=== PATIENT | female | born 1975 ===

== ENCOUNTER 2021-05-24 08:00 | Outpatient (CLI) | payer OTHER | END 2021-05-24 08:30 | disposition home or self-care (01) | LOC: PPH VACUNA 08:00 | DX: Z23 Encounter for immunization (principal) ==

== ENCOUNTER 2021-06-14 08:00 | Outpatient (CLI) | payer OTHER | END 2021-06-14 08:30 | disposition home or self-care (01) | LOC: PPH VACUNA 08:00 | DX: Z23 Encounter for immunization (principal) ==

== ENCOUNTER 2021-08-05 08:04 | Outpatient (CLI) | payer OTHER | END 2021-08-14 15:48 | disposition home or self-care (01) | LOC: MAMO-SONO 08:04 → EDBD 08:04 → MAMO-SONO 08-14 15:48 | PROVIDERS: ATTEND Obstetrics & Gynecology | DX: N60.11 Diffuse cystic mastopathy of right breast (principal); Z12.31 Encounter for screening mammogram for malignant neoplasm of breast ==

== ENCOUNTER → 2021-08-05 08:29 | Outpatient (CLI) | payer OTHER | END | disposition home or self-care (01) | LOC: EDBD 08:29 → LAB 08:29 | PROVIDERS: ATTEND Obstetrics & Gynecology | DX: I10 Essential (primary) hypertension (principal); E78.2 Mixed hyperlipidemia ==

== ENCOUNTER 2021-08-13 14:30 | Outpatient (CLI) | payer OTHER | END 2021-08-13 15:00 | disposition home or self-care (01) | LOC: LAB 14:30 | PROVIDERS: ATTEND Obstetrics & Gynecology | DX: N92.5 Other specified irregular menstruation (principal) ==

== ENCOUNTER 2025-03-14 06:38 | Outpatient (CLI) | payer OTHER ==
[2025-03-14 07:16] LABS: BASO % 1.1 % (0.1-1.2); EOS # 0.22 (0.04-0.54); HEMATOCRIT 39.7 % (34.1-44.9); HEMOGLOBIN 13.9 g/dL (11.2-15.7); LYMPH # 1.79 (1.18-3.74); LYMPH % 32.7 % (19.3-53.1); MEAN CORPUSCULAR HEMOGLOBIN 33.1 pg (25.6-32.2); MONO % 7.3 % (4.7-12.5); NEUT % 54.7 % (34.0-71.1); PLATELET COUNT 271 K/uL (163-369)
[2025-03-14 08:45] LABS: ALBUMIN 3.9 gm/dL (3.4-5.0); BILIRUBIN TOTAL 0.66 mg/dL (0.3-1.2); CALCIUM 8.6 mg/dL (8.5-10.1); CHOL HDL RATIO 3.6 (0-5.0); CREATININE SERUM 0.76 mg/dL (0.55-1.02); GFR 80.88; GLOBULINA 3.2 G/DL (2.4-3.5); T4 FREE 0.98 NG/ML (0.76-1.46); TOTAL PROTEIN 7.1 gm/dL (6.4-8.2); TSH 2.31 uIU/mL (0.358-3.74)
[2025-03-14 09:47] LABS: URINE APPEARANCE Clear; URINE BILIRRUBIN Negative (NEGATIVE); URINE BLOOD Trace; URINE COLOR Yellow; URINE GLUCOSE Negative (NEGATIVE); URINE KETONE Negative (NEGATIVE); URINE LEUKOCYTE Negative; URINE NITRATE Negative; URINE PROTEIN Negative (NEGATIVE); URINE UROBILINOGEN 0.2 E.U./dl
[2025-03-14 09:52] LABS: URINE EPITHELIAL CELLS 6.1 uL (0.0-38.8); URINE RBC 33.8 uL (0.0-20.8)
== END 2025-03-14 06:44 | disposition home or self-care (01) ==
LOC: LAB 06:38 → EDBD 06:38 → LAB 06:44
PROVIDERS: ATTEND Obstetrics & Gynecology
DX: I10 Essential (primary) hypertension (principal); E78.2 Mixed hyperlipidemia

== ENCOUNTER 2025-03-14 07:28 | Outpatient (CLI) | payer OTHER | END 2025-03-14 07:35 | disposition home or self-care (01) | LOC: MAMO-SONO 07:28 | PROVIDERS: ATTEND Obstetrics & Gynecology | DX: N60.19 Diffuse cystic mastopathy of unspecified breast (principal) ==